=== PATIENT | male | born 1930 | race Caucasian/White ===

== ENCOUNTER 2017-03-15 00:10 | Emergency (ER) | payer OTHER, BC ==
[2017-03-15] MEDS ORDERED: NS 1,000 ML IV ONE (00:16)
--- NOTE | 2017-03-15 00:16 | EDPHY ---
H & P Source: Patient, EMS (EMS) Exam Limitations: No limitations - Medical/Surgical History Hx Asthma: No Hx Chronic Respiratory Disease: No Hx Diabetes: No Hx Cardiac Disease: Yes Hx Renal Disease: No Hx Cirrhosis: No Hx Alcoholism: No Hx HIV/AIDS: No Hx Splenectomy or Spleen Trauma: No Other PMH: cardiac stents/had been on blood thinners/stopped friday r/t anemia, glaucoma - Social History Smoking Status: Former smoker Time Seen by Provider: 03/15/17 00:12 HPI/ROS: HPI: This is a 86-year-old male who presents with Chief Complaint: Abdominal pain Location: Lower abdominal Quality: Pain Duration: Prior to arrival Signs and Symptoms: no fever, no nausea, no vomiting, no hematemesis, no blood in stool, no abdominal bloating, no diarrhea, no back pain, no urinary symptoms , no testicular/groin pain, no indigestion, no chest pain, no shortness of breath Timing: Sudden Severity: Severe Context: Patient has a history of cardiac stents had been stopped on Friday from blood thinners, resident of assisted living, presents via EMS with complaints of lower abdominal sharp, constant, moderate, nonradiating pain. He reports that he was getting ready for bed the pain started to occur. He was able to eat and drink normally today. He denies nausea, vomiting, diarrhea, dysuria. He does suffer from BPH and takes Flomax. He reports that he has been urinating without difficulty today. He has never had any abdominal surgeries. EMS gave him 100 mcg of fentanyl and Zofran 4 mg with near complete relief of discomfort. After further questioning patient reports that he feels dizzy but does not know when it started and is unable to answer the intensity. He reports that the room is not spinning. He asked if he states that he is dizzy can he stay in the hospital overnight. Denies chest pain/shortness of breath/lower extremity edema/orthopnea/PND. Unsure of last bowel movement. Modifying Factors: See above Comment: ROS: see HPI Constitutional: No fever, no chills, no weight loss Eyes: No blurred vision Respiratory: No shortness of breath, no cough Cardiovascular: No chest pain, no palpitations Gastrointestinal: No nausea, no vomiting, no diarrhea, no hematemesis, no blood in stool Genitourinary: No dysuria, no blood in urine Extremities: No myalgias, no edema Neurologic: No weakness, no numbness Skin: No rashes, no petechiae Hematologic: No bruising, no bleeding MEDICAL/SURGICAL/SOCIAL HISTORY: Medical/surgical history: cardiac stents/had been on blood thinners/stopped friday r/t anemia, glaucoma Social history: Lives in assisted living. Retired. CONSTITUTIONAL: Pleasant, nontoxic-appearing elderly white male, awake and alert, no obvious distress HEENT: Atraumatic and normocephalic, PERRL, EOMI. Tympanic membranes clear. Oropharynx clear, no exudate and moist pink mucosa. Airway patent. No lymphadenopathy. No meningismus. Cardiovascular: Normal S1/S2, regular rate, regular rhythm, without murmur rub or gallop. PULMONARY/CHEST: Symmetrical and nontender. Clear to auscultation bilaterally. Good air movement. No accessory muscle usage. ABDOMEN: Soft, mild distention in the lower abdomen, suprapubic and lower abdominal tenderness, no rebound, no guarding, no peritoneal signs, no masses or organomegaly. No CVAT. Normoactive bowel sounds heard x4. EXTREMITIES: 2/2 pulses, strength 5/5, no deformities, no clubbing, no cyanosis or edema. NEUROLOGICAL: no focal neuro deficits. GCS 15. SKIN: Warm and dry, pallor, no erythema. no rash. Good capillary refill. (Juliet Khoury) Constitutional: Initial Vital Signs Temperature (C) 36.6 C 03/15/17 00:14 Heart Rate 62 03/15/17 00:14 Respiratory Rate 18 03/15/17 00:14 Blood Pressure 154/74 H 03/15/17 00:14 O2 Sat (%) 98 03/15/17 00:14 O2 Delivery Mode Nasal Cannula O2 (L/minute) 3 Allergies/Adverse Reactions: Penicillins Allergy (Verified 03/15/17 00:18) Rash Home Medications: Medication Instructions Recorded Ferrous Sulfate [Iron] 325 mg PO DAILY 12/19/11 Finasteride [Proscar 5 MG (*)] 5 mg PO DAILY 12/19/11 Aspirin EC [Aspirin EC 81 mg (*)] 81 mg PO HS 09/12/15 Loteprednol 0.5% [Lotemax0.5% Gel] 1 drops RTEYE HS 09/12/15 Tafluprost/Pf [Zioptan 0.0015% Eye 1 each RTEYE HS 09/12/15 Drops] Zolpidem Tartrate [Ambien 5MG (*)] 5 mg PO HS PRN 09/12/15 Atorvastatin Calcium [Lipitor 40 80 mg PO DAILY 10/02/15 mg (*)] Dorzolamide/Timolol/Pf [Cosopt Pf 1 each EACHEYE HS 10/03/15 Eye Drops] Acetaminophen [Tylenol 325mg (*)] 650 mg PO Q4 PRN #0 tab 10/07/15 Aricept 12/18/15 GLYCERIN LAXATIVE 12/18/15 Lexapro 12/18/15 Maxitrol Opht Drops (*) 12/18/15 Milk of Magnesia 12/18/15 Pantoprazole Sodium 12/18/15 Proscar 5 MG (*) 12/18/15 Flomax 03/15/17 Hydrocodone/APAP 5/325 [[place] 1 - 2 tab PO Q4H PRN #10 tab 03/15/17 5/325] Tamsulosin HCl [Flomax] 0.4 mg PO DAILY #10 cap 03/15/17 Medical Decision Making ED Course/Re-evaluation: Labs, urinalysis, IV fluids, IV medications, CT abdomen and pelvis scan ordered Patient is afebrile, no systemic signs, minimal pain upon arrival. Bladder scan 19ml 1255: Labs reviewed and grossly unremarkable. 0110: Reassessed abdominal pain and reports now 6/10; IV Dilaudid given. Patient taken to CT 0205: Reviewed CT abdomen and pelvis Dr. Mcdermott and concern for small-bowel obstruction. End of shift. Signed over to Dr. Mcdermott pending final CT abdomen and pelvis scan report and urinalysis. Patient will most likely be admitted. This patient was seen under the supervision of my secondary supervising physician. I evaluated care for this patient independently. Discussed this patient with Dr. Mcdermott who did not see the patient. (Juliet Khoury) CT scan abdomen pelvis with IV contrast this shows a distal left ureteral stone 7 x 8 x 10 mm. Called to me by Flynn Reyes. This most likely the cause of his deep left lower quadrant focal area of pain. I did discuss the bowel gas pattern with Dr. map Amy. No evidence of small-bowel obstruction. Will for this patient to Urology. UA is pending at this time. Will prescribe him Flomax, [place]. Urine strainer. Increase fluid intake. UA Clean. Negative for infection. (Willy Mcdermott) Differential Diagnosis: Abdominal pain including but not limited to appendicitis, cholecystitis, gastritis and urinary tract infection. (Juliet Khoury) - Data Points Laboratory Results: Laboratory Results 03/15/17 00:25 03/15/17 00:25 03/15/17 03/15/17 03/15/17 02:20 00:45 00:25 WBC RBC Hgb Hct MCV MCH MCHC RDW Plt Count MPV Neut % (Auto) Lymph % (Auto) [place] % (Auto) Eos % (Auto) Baso % (Auto) Nucleat RBC Rel Count Absolute Neuts (auto) Absolute Lymphs (auto) Absolute Monos (auto) Absolute Eos (auto) Absolute Basos (auto) Absolute Nucleated RBC Immature Gran % Immature Gran # PT INR APTT VBG Lactic Acid 1.0 mmol/L mmol/L (0.7-2.1) Sodium 136 mEq/L mEq/L (135-145) Potassium 4.9 mEq/L mEq/L (3.5-5.2) Chloride 95 mEq/L L mEq/L (97-110) Carbon Dioxide 30 mEq/l mEq/l (22-31) Anion Gap 11 mEq/L mEq/L (8-16) BUN 26 mg/dL H mg/dL (7-23) Creatinine 1.2 mg/dL mg/dL (0.7-1.3) Estimated GFR 57 Glucose 106 mg/dL H mg/dL (70-100) Calcium 9.9 mg/dL mg/dL (8.5-10.4) Total Bilirubin 0.7 mg/dL mg/dL (0.1-1.4) Conjugated Bilirubin 0.3 mg/dL mg/dL (0.0-0.5) Unconjugated Bilirubin 0.4 mg/dL mg/dL (0.0-1.1) AST 32 IU/L IU/L (17-59) ALT 35 IU/L IU/L (21-72) Alkaline Phosphatase 60 IU/L IU/L (38-126) Total Protein 7.6 g/dL g/dL (6.3-8.2) Albumin 4.4 g/dL g/dL (3.5-5.0) Lipase 285 IU/L IU/L (23-300) Urine Color YELLOW Urine Appearance CLEAR Urine pH 6.0 (5.0-7.5) Ur Specific [place] > 1.035 H (1.002-1.030) Urine Protein NEGATIVE (NEGATIVE) Urine Ketones 1+ H (NEGATIVE) Urine Blood NEGATIVE (NEGATIVE) Urine Nitrate NEGATIVE (NEGATIVE) Urine Bilirubin NEGATIVE (NEGATIVE) Urine Urobilinogen NEGATIVE EU EU (0.2-1.0) Ur Leukocyte Esterase NEGATIVE (NEGATIVE) Urine Glucose NEGATIVE (NEGATIVE) 03/15/17 03/15/17 00:25 00:25 WBC 8.59 10^3/uL 10^3/uL (3.80-9.50) RBC 4.66 10^6/uL 10^6/uL (4.40-6.38) Hgb 13.1 g/dL L g/dL (13.7-17.5) Hct 40.0 % % (40.0-51.0) MCV 85.8 fL fL (81.5-99.8) MCH 28.1 pg pg (27.9-34.1) MCHC 32.8 g/dL g/dL (32.4-36.7) RDW 18.1 % H % (11.5-15.2) Plt Count 274 10^3/uL 10^3/uL (150-400) MPV 9.6 fL fL (8.7-11.7) Neut % (Auto) 71.6 % % (39.3-74.2) Lymph % (Auto) 17.6 % % (15.0-45.0) [place] % (Auto) 7.0 % % (4.5-13.0) Eos % (Auto) 2.6 % % (0.6-7.6) Baso % (Auto) 0.9 % % (0.3-1.7) Nucleat RBC Rel Count 0.0 % % (0.0-0.2) Absolute Neuts (auto) 6.15 10^3/uL 10^3/uL (1.70-6.50) Absolute Lymphs (auto) 1.51 10^3/uL 10^3/uL (1.00-3.00) Absolute Monos (auto) 0.60 10^3/uL 10^3/uL (0.30-0.80) Absolute Eos (auto) 0.22 10^3/uL 10^3/uL (0.03-0.40) Absolute Basos (auto) 0.08 10^3/uL 10^3/uL (0.02-0.10) Absolute Nucleated RBC 0.00 10^3/uL 10^3/uL (0-0.01) Immature Gran % 0.3 % % (0.0-1.1) Immature Gran # 0.03 10^3/uL 10^3/uL (0.00-0.10) PT 12.2 SEC SEC (12.0-15.0) INR 0.88 (0.83-1.16) APTT 26.6 SEC SEC (23.0-38.0) VBG Lactic Acid Sodium Potassium Chloride Carbon Dioxide Anion Gap BUN Creatinine Estimated GFR Glucose Calcium Total Bilirubin Conjugated Bilirubin Unconjugated Bilirubin AST ALT Alkaline Phosphatase Total Protein Albumin Lipase Urine Color Urine Appearance Urine pH Ur Specific [place] Urine Protein Urine Ketones Urine Blood Urine Nitrate Urine Bilirubin Urine Urobilinogen Ur Leukocyte Esterase Urine Glucose Medications Given: Discontinued Medications Hydromorphone HCl (Dilaudid) 0.5 mg IVP EDNOW ONE Stop: 03/15/17 00:48 Last Admin: 03/15/17 00:53 Dose: 0.5 mg Hydromorphone HCl (Dilaudid) 1 mg IVP EDNOW ONE Stop: 03/15/17 01:39 Last Admin: 03/15/17 01:41 Dose: 1 mg Sodium Chloride (Ns) 1,000 mls @ 0 mls/hr IV EDNOW ONE; Wide Open PRN Reason: Protocol Stop: 03/15/17 00:17 Last Admin: 03/15/17 00:29 Dose: 1,000 mls Departure - Departure Disposition: Home, Routine, Self-Care Clinical Impression: Kidney stone on left side Condition: Good Instructions: Hydrocodone/Acetaminophen (By mouth), Kidney Stones (ED) Additional Instructions: 1. Drink lots of fluids stay well-hydrated. 2. Flomax to help remove the stone. 3. [place] for severe pain control. 4. Return emergency room if develops worsening abdominal pain, flank pain, fever, vomiting. 5. Follow up with Urology. Referrals: Patient,NotPresent [Primary Care Provider] - As per Instructions Toro Figueroa MD [Medical Doctor] - As per Instructions Prescriptions: Hydrocodone/APAP 5/325 [[place] 5/325] 1 - 2 tab PO Q4H PRN #10 tab PRN Reason: Pain, Moderate Tamsulosin HCl [Flomax] 0.4 mg PO DAILY #10 cap
[2017-03-15 00:18] VITALS: RESP 18
[2017-03-15] MEDS ORDERED: HYDROmorphONE/DILAUDID 1 MG/ML INJ IVP ONE ×2 (00:47→01:38)
[2017-03-15 00:59] LABS: INR 0.88 (0.83-1.16); PROTIME(PATIENT) 12.2 SEC (12.0-15.0)
[2017-03-15] MEDS ORDERED: IOPAMIDOL (ISOVUE-300) 100 ML BTL ONE (00:59)
[2017-03-15 01:02] LABS: PLATELET COUNT 274 10^3/uL (150-400)
[2017-03-15] MEDS ORDERED: HYDROCOD/APAP 5/325 PREPACK#6 BTL TAKEHOME ONE (02:39)
[2017-03-15 03:14] VITALS: BP 143/80; PULSE 70; TEMP 98.2; O2SAT 96
== END 2017-03-15 03:13 | disposition home or self-care (01) ==
LOC: EDUNIT#
PROC: 3E0337Z Introduction of Electrolytic and Water Balance Substance into Peripheral Vein, Percutaneous Approach (ICD-10-PCS; principal; 2017-03-15)
DX: N20.0 Calculus of kidney (principal); E86.9 Volume depletion, unspecified; Z79.82 Long term (current) use of aspirin; Z87.891 Personal history of nicotine dependence
CPT/HCPCS: 74177; 96361; 96374; 96376; 99285; J1170; Q9967